=== PATIENT | female | born 1945 | race Caucasian/White ===

== ENCOUNTER 2022-06-09 11:11 | Emergency (ER) | payer OTHER ==
[~2022-06-09] VITALS: Ht 148.8 cm; Wt 86.4 kg
[2022-06-09 11:16] VITALS: BP 172/94
--- NOTE | 2022-06-09 12:13 | NUR ---
Patient ambulated with steady gait to bed 2.
[2022-06-09 12:23] LABS: BASOPHILS % (AUTO) 0.6 % (0.0-2.0); EOSINOPHILS # (AUTO) 0.2 K/uL (0-0.4); EOSINOPHILS % (AUTO) 4.3 % (0.0-4.0); HEMOGLOBIN 13.1 g/dL (12.0-16.0); LYMPHOCYTES # (AUTO) 1.5 K/uL (2.5-16.5); LYMPHOCYTES % (AUTO) 26.6 % (20.5-51.1); MEAN CORPUSCULAR HEMOGLOBIN 33 pg (27-31); MEAN CORPUSCULAR HGB CONC 35 g/dL (33-37); MEAN CORPUSCULAR VOLUME 94.6 fL (80-94); MONOCYTES # (AUTO) 0.6 K/uL (0.8-1.0); MONOCYTES % (AUTO) 10.6 % (1.7-9.3); NEUTROPHILS # (AUTO) 3.2 K/uL (1.8-7.7); NEUTROPHILS % (AUTO) 57.9 % (42.2-75.2); PLATELET COUNT (AUTO) 233 K/uL (140-450); RED BLOOD CELL COUNT(AUTO) 4.02 MIL/uL (4.20-5.40); RED CELL DISTRIBUTION WIDTH 13.2 % (11.6-13.7); WHITE BLOOD COUNT (AUTO) 5.5 K/uL (4.8-10.8)
[2022-06-09 12:50] LABS: ALBUMIN 3.2 g/dL (3.4-5.0); ANION GAP 14.2 (8-16); ASPARTATE AMINOTRANSFERASE 50 U/L (15-37); CHLORIDE 102 mmol/L (98-107); CREATININE 1.2 mg/dL (0.6-1.3); GLUCOSE 154 mg/dL (74-106); LIPASE 113 U/L (73-393); POTASSIUM 3.2 mmol/L (3.5-5.1); SODIUM SERUM 142 mmol/L (136-145); TOTAL BILIRUBIN 0.7 mg/dL (0.0-1.0); UREA NITROGEN, BLOOD 17 mg/dL (7-18)
[2022-06-09] MEDS ORDERED: POTASSIUM CHLORIDE 10 MEQ TABER PO ONE (13:00)
[2022-06-09] MEDS ORDERED: IBUP-2213 PO (13:31)
[2022-06-09] MEDS ORDERED: OMEP40EC24 PO (13:31)
[2022-06-09] MEDS ORDERED: CIPR500T4 PO (13:31)
--- NOTE | 2022-06-09 13:35 | NUR ---
PT C/O ABDOMINAL PAIN INTERMITTENTLY X1 WEEK. MEDICATED PER ORDER.
[2022-06-09 14:31] VITALS: BP 144/79
--- NOTE | 2022-06-09 14:32 | NUR ---
Patient discharged with v/s stable. Written and verbal after care instructions given and explained. Patient alert, oriented and verbalized understanding of instructions. Ambulatory with steady gait. All questions addressed prior to discharge. ID band removed. Patient advised to follow up with PMD. Rx of PRILOSEC, CIPRO, MOTRIN given. Patient educated on indication of medication including possible reaction and side effects. Opportunity to ask questions provided and answered.
== END 2022-06-09 14:32 | disposition home or self-care (01) ==
LOC: MED 11:11
DX: N39.0 Urinary tract infection, site not specified (principal); I10 Essential (primary) hypertension; Z79.899 Other long term (current) drug therapy
CPT/HCPCS: 36415; 80053; 81002; 83690; 85025; 99284